=== PATIENT | female | born 1985 | race Caucasian/White ===

== ENCOUNTER 2017-09-03 11:52 | Day surgery (SDC) | payer OTHER ==
[2017-09-03] MEDS ORDERED: Ringers Lactate 1,000 ML IV ONE ×2 (11:55→14:27)
[2017-09-03 12:14] LABS: Specific Gravity 1.025 (1.005-1.030)
[2017-09-03] MEDS: CEFAZOLIN/SWI 1gm 1 GM/10 ML SYR ONE ×2 (12:54→13:50)
[2017-09-03] MEDS ORDERED: LIDOCAINE 1% W/EPI 1:100,000 MDV 50 ML VIAL ONE (12:55)
[2017-09-03] MEDS ORDERED: PROPOFOL 200 MG/20 ML VIAL IV ONE (12:56)
[2017-09-03] MEDS ORDERED: FENTANYL CITR 100 MCG/2 ML ONE (12:56)
[2017-09-03] MEDS ORDERED: MIDAZOLAM HCL 2 MG/2 ML INJ ONE (12:56)
[2017-09-03] MEDS ORDERED: ONDANSETRON 4 MG/2 ML VIAL ONE (12:58)
[2017-09-03] MEDS ORDERED: LIDOCAINE 1% MPF 5 ML VIAL ONE (12:59)
[2017-09-03] MEDS ORDERED: KETOROLAC 30 MG/ML INJ ONE (13:59)
[2017-09-03] MEDS ORDERED: MEPERIDINE HCL 25 MG/0.5 ML ONE (14:48)
[2017-09-03] MEDS ORDERED: HYDROCODONE/APAP 5/325 MG TAB ONE (15:46)
--- NOTE | 2017-09-04 11:45 | OP ---
Date of Procedure: 09/03/2017 Surgeon: Puja Mancilla MD Preoperative Diagnosis: Left Bartholin's gland abscess or cyst. Postoperative Diagnosis: Left Bartholin's gland cyst with irregular cyst wall. Procedure Performed: Marsupialization of the left Bartholin's gland cyst and multiple biopsies. No abscess, very minimal gelatinous cyst fluid. Anesthesia: General with LMA. Specimens: Left Bartholin's gland cyst wall. Complications: No complications. Drains/packing: A half-inch non-iodoform gauze was packed tightly for hemostasis. Indications: Patient is a 32-year-old with history of Crohn's and rectocutaneous fistulae. She pres ented with left-sided tenderness of the vulvar area, found to have a left Bartholin's gland cyst, pos sible abscess, treated with p.o. antibiotics, brought back to reevaluate the patient a few days, stil l continues to have pain, however, there is no superficial erythema or cellulitis. So, we counseled the patient regarding observation with antibiotics and possibility of infection. If it is not draine d that this could cause another tract or possibility for a track that could connect and create a rect ovaginal fistula since this is so close to her other fistulae and perineal area. Once we discussed a bout this, she wanted to take care of this with marsupialization as discussed. So, plan was to drain the abscess or cyst marsupialized gland so that it would not recur in its swelling or obstruction. Description Of Procedure: After informed consent was verified, she was brought to the OR and 1 g of Ancef was given. She was placed in a dorsal lithotomy position using Tien stirrups. The vulva, vag madhu, and perineum were prepped and draped in a sterile fashion. Exam was performed under anesthesia, where I found about 2 cm cyst that is a swollen, nodular, and firm. So, a 2 cm incision was made on the skin on the inner aspect of the labia minora right above the level of the Bartholin's gland open ing. Progressively, all the layers were incised so that the cyst wall was reached. Then this was in cised. There was a very small amount of gelatinous fluid that was drained. There was no purulent di scharge inside it. This area was thoroughly cleaned and the entire cyst wall was examined. It was n odular and irregular, so the cyst wall and its base on both peripheral rims were biopsied adequately with the help of tenotomy scissors. Then, the edges of the Bartholin's gland were all injected with the help of 1% lidocaine mixed with 1:100,000 epinephrine, about 10 cc was injected in the surroundin g areas as well. Then, it was marsupialized using 3-0 Vicryl in a circumferential fashion, about 4 s titches on each side were placed to close and marsupialize it. 1/2 inch packing was placed inside ti ghtly to get hemostasis. She will remove this in 24 hours. All the instruments, needles, and sponge s were counted after removed and were correct. She tolerated the procedure well. She was recovered from anesthesia in the OR and taken to PACU in stable condition. She will follow up with me in 1 wee k. The biopsies have been sent for permanent pathology and we will discuss the pathology after it is received. ESTELA Voice ID: [id number] Report ID: [id number]
== END 2017-09-03 15:46 | disposition home or self-care (01) ==
LOC: OR 11:52
PROVIDERS: ATTEND Obstetrics & Gynecology
PROC: 0UBM0ZX Excision of Vulva, Open Approach, Diagnostic (ICD-10-PCS; 2017-09-03)
PROC: 0U9L0ZZ Drainage of Vestibular Gland, Open Approach (ICD-10-PCS; principal; 2017-09-03 13:30)
DX: N75.0 Cyst of Bartholin's gland (principal); K50.014 Crohn's disease of small intestine with abscess; Z82.3 Family history of stroke; Z80.9 Family history of malignant neoplasm, unspecified; Z83.2 Family history of diseases of the blood and blood-forming organs and certain disorders involving the immune mechanism
CPT/HCPCS: 81025; 88304; 88305; J0690; J2175; J2250; J2405; J3010